=== PATIENT | male | born 1985 | race Caucasian/White ===

== ENCOUNTER 2019-04-17 17:39 | Emergency (ER) | payer BC ==
--- NOTE | 2019-04-17 18:34 | CR ---
Left knee: 4 views of the left knee were obtained. Comparison: No previous knee exam. No joint effusion is seen. Medial and lateral joint spaces are maintained in height. No fracture, dislocation or other bony abnormality is seen. Impression: 1. No abnormality is appreciated on left knee exam. Diagnostic code #1 Study was dictated in [place] Standard Time
--- NOTE | 2019-04-17 18:55 | EDM.PDOC ---
ED HPI GENERAL MEDICAL PROBLEM - General Chief Complaint: Lower Extremity Injury/Pain Stated Complaint: HURT LEFT KNEE PLAYING BASKETBALL Time Seen by Provider: 04/17/19 17:53 Source of Information: Reports: Patient, RN Notes Reviewed History Limitations: Reports: No Limitations - History of Present Illness INITIAL COMMENTS - FREE TEXT/NARRATIVE: Patient is a 33-year-old male who presents to the ED for evaluation of a left knee injury. Patient states he was playing basketball with a couple of his buddies, and he went to make a jump stop, and move laterally, and witnessed his knee going inward. He notes that it was very painful after this. He thinks that his kneecap went out of place and then went back in. Patient states it is very painful to bear weight on the leg, he is not having any numbness or tingling in his toes, nor is he having any pain in his hip. Patient did take some ibuprofen at 2 PM before the basketball game, but has not taken any since the injury. Patient notes that he has had a previous ACL tear to his right knee. Left Knee Pain Score (Numeric/FACES): 7 - Related Data Allergies Allergy/AdvReac Type Severity Reaction Status Date / Time No Known Allergies Allergy Verified 04/17/19 17:47 Home Meds: Home Meds . [No Known Home Meds] 04/17/19 [History] Past Medical History Musculoskeletal History: Reports: Other (See Below) Other Musculoskeletal History: ACL tear R knee Social & Family History - Recreational Drug Use Recreational Drug Use: No Review of Systems - Review of Systems Review Of Systems: Comprehensive ROS is negative, except as noted in HPI. Musculoskeletal: Reports: Joint Pain (L knee pain). Denies: Joint Swelling Neurological: Denies: Numbness, Tingling ED EXAM, GENERAL - Physical Exam Exam: See Below Exam Limited By: No Limitations General Appearance: Alert, WD/WN, No Apparent Distress Throat/Mouth: Normal Inspection, Normal Lips, Normal Teeth, Normal Gums, Normal Oropharynx, Normal Voice, No Airway Compromise Head: Atraumatic Neck: Normal Inspection Respiratory/Chest: No Respiratory Distress, Lungs Clear, Normal Breath Sounds, No Accessory Muscle Use, Chest Non-Tender Cardiovascular: Normal Peripheral Pulses, Regular Rate, Rhythm, No Murmur Peripheral Pulses: 3+: Dorsalis Pedis (L), Dorsalis Pedis (R) Extremities: Normal Inspection, Normal Capillary Refill, Limited Range of Motion (of left knee d/t pain, no obvious instability on exam) Neurological: Alert, Oriented, Normal Cognition, No Motor/Sensory Deficits Psychiatric: Normal Affect, Normal Mood Skin Exam: Warm, Dry, Intact, Normal Color, No Rash Course - Vital Signs Last Recorded V/S: Last Vital Signs Temp 98.2 F 04/17/19 17:47 Pulse 103 H 04/17/19 17:47 Resp BP 126/89 04/17/19 17:47 Pulse Ox 99 04/17/19 17:47 - Orders/Labs/Meds Orders: Active Orders 24 hr Category Date Time Status DME for Discharge [COMM] Routine Oth 04/17/19 18:48 Ordered - Re-Assessments/Exams Free Text/Narrative Re-Assessment/Exam: 04/17/19 18:53 Patient's knee x-ray is back, demonstrates no acute bony abnormality. We will place the patient in a knee immobilizing brace and have him go home on crutches. Patient will be given other general recommendations, he will follow- up in [place] further down the road if he is having lingering problems. He states that he lives closer to [place] and would prefer to go there for orthopedic management if needed. Departure - Departure Time of Disposition: 18:53 Disposition: Home, Self-Care 01 Condition: Fair Clinical Impression: Knee joint injury Qualifiers: Encounter type: initial encounter Laterality: left Qualified Code(s): S89.92XA - Unspecified injury of left lower leg, initial encounter - Discharge Information *PRESCRIPTION DRUG MONITORING PROGRAM REVIEWED*: No *COPY OF PRESCRIPTION DRUG MONITORING REPORT IN PATIENT COLIN: No Instructions: Crutch Use, Adult, [id number] Referrals: PCP,None [Primary Care Provider] - Additional Instructions: You have been evaluated in the ED for your left knee injury. Your x-ray demonstrated no acute fracture or bony abnormality. Please use ice as tolerated to the affected area. You may take Tylenol 500 mg or ibuprofen 600mg q6 hrs for pain relief. Please do so until you have a tolerable level of pain with activity. Do not exceed 4000mg Tylenol, Do not exceed 3200mg ibuprofen in a 24 hour time period. Please call Ortho for follow-up and further evaluation if symptoms are not much better in a 1.5 to 2 weeks time. Recommend MRI of the knee for further evaluation. Please return to ED if your symptoms should change or worsen. Sepsis Event Note - Evaluation Sepsis Screening Result: No Definite Risk - Focused Exam Vital Signs: Vital Signs Temp Pulse BP Pulse Ox 04/17/19 17:47 98.2 F 103 H 126/89 99 Date Exam was Performed: 04/17/19 Time Exam was Performed: 18:49 - My Orders Last 24 Hours: My Active Orders 04/17/19 18:48 DME for Discharge [COMM] Routine - Assessment/Plan Last 24 Hours: My Active Orders 04/17/19 18:48 DME for Discharge [COMM] Routine
== END 2019-04-17 19:27 | disposition home or self-care (01) ==
LOC: JD.ED 17:39
DX: S89.92XA Unspecified injury of left lower leg, initial encounter (principal); X50.1XXA Overexertion from prolonged static or awkward postures, initial encounter; Y93.67 Activity, basketball
CPT/HCPCS: 73564-26-LT; 73564-LT; 99282; 99283-25